=== PATIENT | male | born 2000 | race African-American/Black ===

== ENCOUNTER 2021-09-20 05:06 | Emergency (ER) | payer OTHER ==
[2021-09-20 05:06] VITALS: BP 104/54
[2021-09-20] MEDS ORDERED: ceFAZolin 1GM/50ML 100 ML IV ONE (07:00)
[2021-09-20] MEDS ORDERED: TETANUS-DIPTH-ACEL PERTUSSIS 0.5ML SYR Tdap IM ONE (07:00)
[2021-09-20] MEDS ORDERED: CLIN-203 PO (07:27)
[2021-09-20] MEDS ORDERED: PERCOT PO (07:27)
[2021-09-20] MEDS ORDERED: ceFAZolin IM 1GM/2.5ML STERILE WATER IM ONE (08:45)
== END 2021-09-20 09:55 | disposition home or self-care (01) ==
LOC: ER 05:06 → EEVIPCON 05:06 → ER 09:55
DX: S81.832A Puncture wound without foreign body, left lower leg, initial encounter (principal); W34.09XA Accidental discharge from other specified firearms, initial encounter; Y93.89 Activity, other specified; Y92.89 Other specified places as the place of occurrence of the external cause; Y99.8 Other external cause status
CPT/HCPCS: 73590; 90471; 90715; 96372; 99284; J0690